=== PATIENT | female | born 1990 | race Caucasian/White ===

== ENCOUNTER 2023-08-13 14:02 | Inpatient (IN) | payer BC ==
[~2023-08-13] VITALS: Ht 157.5 cm; Wt 83.5 kg
[2023-08-14] MEDS ORDERED: MAGNESIUM HYDROXIDE/AL HYDROX 30 ML CUP PO PRN ×2 (00:15→13:45)
[2023-08-14] MEDS ORDERED: CALCIUM CARBONATE 500 MG CHEW PO PRN ×2 (00:15→13:45)
[2023-08-14] MEDS ORDERED: miSOPROStoL 25 MCG TAB PV SCH (00:15)
[2023-08-14] MEDS ORDERED: LACTATED RINGER'S 1,000 ML IV PRN (00:15)
[2023-08-14] MEDS ORDERED: LACTATED RINGER'S 1,000 ML IV SCH (00:15)
[2023-08-14 00:45] LABS: HEMATOCRIT 32.3 % (35.0-50.0); MCH 26.9 (27-36); MCV 79.1 fl (81-99); RBC 4.09 M/ul (4.3-5.7); RDW 15.3 (10.5-15.0)
[2023-08-14 01:19] LABS: ABO AB; RH POSITIVE
[2023-08-14 01:20] LABS: ANTIBODY SCREEN NEGATIVE
[2023-08-14 01:25] LABS: AMPHETAMINES, URINE NEGATIVE (NEGATIVE); BARBITURATES, URINE NEGATIVE (NEGATIVE); BENZODIAZEPINE, URINE NEGATIVE (NEGATIVE); BUPRENORPHINE, URINE NEGATIVE (NEGATIVE); CANNABINOID, URINE NEGATIVE (NEGATIVE); COCAINE, URINE NEGATIVE (NEGATIVE); ECSTASY, URINE NEGATIVE (NEGATIVE); FENTANYL, URINE NEGATIVE (NEGATIVE); METHADONE, URINE NEGATIVE (NEGATIVE); OPIATES, URINE NEGATIVE (NEGATIVE); OXYCODONE, URINE NEGATIVE (NEGATIVE); PHENCYCLIDINE, URINE NEGATIVE (NEGATIVE)
[2023-08-14 01:34] VITALS: BP 115/71
[2023-08-14] MEDS ORDERED: OXYTOCIN/DEXTROSE 5% 20 UNITS/100 ML BAG IV SCH (01:55)
--- NOTE | 2023-08-14 09:50 | PR ---
[facility] [address] [facility] [place], [place] [address] Signed Progress Notes IP Datetime Report Generated by CPN: 08/14/2023 09:50 PROGRESS NOTES: [id number] Impression: Normal Progression of Labor Procedures: Artificial ROM; Sterile Vag Exam Plan: Continue Present Management VITAL SIGNS: [id number] Vital Signs: Reviewed; Within Normal Limits EXAM: [id number] Dilatation: 3.5 Effacement: 90 Station: -2 Contractions: not picking up well MEMBRANES: [id number] Comments: Good progress and becoming more uncomfortable. Will continue. FETUS A: [id number] FHR Baseline: 145 Variability: Moderate 6-25bpm Accelerations: 15X15 Decelerations: None FHR Category: Category I Presentation: Vertex FETUS B: [id number] Signing Physician: Marialuisa Mahan MD Copies: ~ *Electronically Signed* 08/14/23 0950 MARIALUISA MAHAN MD PATIENT NAME: GABRIELA LOWRY PROGRESS NOTE DATE OF : 91 PHYSICIAN: MARIALUISA MAHAN MD RPT #: [id number] REPORT IS CONFIDENTIAL AND NOT TO BE RELEASED WITHOUT AUTHORIZATION
[2023-08-14] MEDS ORDERED: OXYTOCIN/0.9 % SODIUM CHLORIDE 500 ML IV ONE (13:13)
[2023-08-14] MEDS ORDERED: MAGNESIUM HYDROXIDE 30 ML UDC PO PRN (13:45)
[2023-08-14] MEDS ORDERED: BENZOCAINE/LANOLIN/ALOE VERA 60 ML AEROSOL TOP PRN (13:45)
[2023-08-14] MEDS ORDERED: HYDROCODONE/ACETA 5/325 TAB PO PRN (13:45)
[2023-08-14] MEDS ORDERED: HYDROCORTISONE ACETATE 25 MG SUPP PR PRN (13:45)
[2023-08-14] MEDS ORDERED: OXYTOCIN/0.9 % SODIUM CHLORIDE 500 ML IV SCH (13:45)
[2023-08-14] MEDS ORDERED: IBUPROFEN 600 MG TAB PO PRN (13:45)
[2023-08-14] MEDS ORDERED: WITCH HAZEL/GLYCERIN 1 EA PAD TOP PRN (13:45)
[2023-08-14] MEDS ORDERED: ACETAMINOPHEN 325 MG TAB PO PRN (13:45)
[2023-08-14] MEDS ORDERED: LIDOCAINE 2% VISCOUS 6 ML SYR TOP ONE ×2 (13:45)
[2023-08-14] MEDS ORDERED: SENNOSIDES/DOCUSATE 1 EA TAB PO SCH (21:00)
[2023-08-15 05:30] LABS: HEMATOCRIT 28.9 % (35.0-50.0); HEMOGLOBIN 9.6 g/dL (12.0-18.0); MCH 26.6 (27-36); MCHC 33.1 g/dl (30-36); MCV 80.2 fl (81-99); RBC 3.61 M/ul (4.3-5.7); RDW 15.2 (10.5-15.0)
== END 2023-08-16 14:40 | disposition home or self-care (01) | DRG 768 ==
LOC: FBC 14:02
PROVIDERS: Obstetrics & Gynecology; ADMIT Obstetrics & Gynecology; ATTEND Obstetrics & Gynecology
PROC: 10E0XZZ Delivery of Products of Conception, External Approach (ICD-10-PCS; principal; 2023-08-14)
PROC: 0DQR0ZZ Repair Anal Sphincter, Open Approach (ICD-10-PCS; 2023-08-14)
PROC: 10907ZC Drainage of Amniotic Fluid, Therapeutic from Products of Conception, Via Natural or Artificial Opening (ICD-10-PCS; 2023-08-14)
DX: O48.0 Post-term pregnancy (principal); Z37.0 Single live birth; O70.20 Third degree perineal laceration during delivery, unspecified; O62.3 Precipitate labor; Z88.1 Allergy status to other antibiotic agents; Z88.8 Allergy status to other drugs, medicaments and biological substances; Z91.038 Other insect allergy status; Z3A.40 40 weeks gestation of pregnancy; Z90.89 Acquired absence of other organs; Z98.890 Other specified postprocedural states
CPT/HCPCS: 36415; 80307; 85027; 86850; 86900; 86901; A9270